=== PATIENT | female | born 1975 | race African-American/Black ===

== ENCOUNTER 2019-02-08 16:55 | Observation (INO) | payer MEDICAID ==
--- NOTE | 2019-02-08 17:44 | CR ---
[id number] RAD/RAD Chest PA or AP 1V EXAM: SINGLE VIEW CHEST. INDICATION: CHEST PAIN COMPARISON: NO PREVIOUS SIMILAR EXAM IS AVAILABLE FINDINGS: The lungs are clear The aorta is slightly tortuous The cardiac silhouette is upper normal IMPRESSION: NO PNEUMONIA OR EDEMA Timbo Chamberlain MD 02/08/19 0007 Thank you for allowing us to participate in the care of your patient.
--- NOTE | 2019-02-08 17:47 | EDM.PDOC ---
ED HPI GENERAL MEDICAL PROBLEM - General Chief Complaint: Chest Pain Stated Complaint: ER Time Seen by Provider: 02/08/19 17:10 Source of Information: Reports: Patient, RN History Limitations: Reports: No Limitations - History of Present Illness INITIAL COMMENTS - FREE TEXT/NARRATIVE: Patient presented by ambulance after developing chest pain at work. Her heart was beating fast and she felt dizzy. The chest pain was mid chest and intermittent. Pain was increased with deep breathing. She felt nauseous. Her heart rate at work was 170s. Her Bp was 158/111. She was given 1 spray Nitro and baby aspirin 324 mg. She has had a headache which started this morning when she woke up. She feels generally a bit unwell. She developed a pain in her left flank/back area while sitting in the bed. Onset: Today Onset Date: 02/08/19 Location: Reports: Chest, Back Quality: Reports: Ache, Pressure Severity: Moderate Improves with: Reports: Rest Worsens with: Reports: Breathing Context: Reports: Activity Associated Symptoms: Reports: Chest Pain, Headaches, Nausea/Vomiting, Other ( light headed) Treatments [employer]: Reports: Aspirin, EKG, Nitroglycerin, Other (see below) (Nitro) Lower Chest Pain Score (Numeric/FACES): 6 Frontal Headache Pain Score (Numeric/FACES): 9 Middle Chest Pain Score (Numeric/FACES): 4 - Related Data Allergies Allergy/AdvReac Type Severity Reaction Status Date / Time No Known Allergies Allergy Verified 02/08/19 17:25 Home Meds: Home Meds . [No Known Home Meds] 02/08/19 [History] Past Medical History Gastrointestinal History: Reports: Cholelithiasis Social & Family History - Tobacco Use Smoking Status *Q: Never Smoker ED ROS GENERAL - Review of Systems Review Of Systems: ROS reveals no pertinent complaints other than HPI. ED EXAM, GENERAL - Physical Exam Exam: See Below Free Text/Narrative:: Female who is on exam cart and appears uncomfortable but not acutely distressed. VSS. She reports the chest pain has resolved currently. She then developed a pain in her left flank area but was sitting up very awkwardly on the cart. Exam Limited By: No Limitations General Appearance: Alert, WD/WN, Anxious, Mild Distress Eye Exam: Bilateral Eye: Normal Inspection Ears: Normal External Exam, Normal Canal, Normal TMs Nose: Normal Inspection Throat/Mouth: Normal Inspection, Normal Oropharynx, Normal Voice, No Airway Compromise Head: Atraumatic, Normocephalic Neck: Supple, Non-Tender. No: Lymphadenopathy (L), Thyromegaly Respiratory/Chest: No Respiratory Distress, Lungs Clear, Decreased Breath Sounds Cardiovascular: Regular Rate, Rhythm, No Edema, No Murmur GI/Abdominal: Normal Bowel Sounds, Soft, Non-Tender, No Organomegaly, No Distention (Female) Exam: Deferred Rectal (Female) Exam: Deferred Back Exam: Normal Inspection, Muscle Spasm. No: CVA Tenderness (L), CVA Tenderness (R) Extremities: Normal Inspection, Normal Range of Motion, Non-Tender, No Pedal Edema, Normal Capillary Refill Neurological: Alert, Oriented, CN II-XII Intact, Normal Cognition, No Motor/ Sensory Deficits Psychiatric: Anxious Skin Exam: Warm, Dry, No Rash Lymphatic: No Adenopathy Course - Vital Signs Last Recorded V/S: Last Vital Signs Temp 97.7 F 02/09/19 05:47 Pulse 78 02/09/19 05:47 Resp 18 02/09/19 05:47 BP 132/52 L 02/09/19 05:47 Pulse Ox 97 02/09/19 05:47 - Orders/Labs/Meds Orders: Active Orders 24 hr Category Date Time Status EKG 12 Lead [EKG Documentation Completion] [RC] STAT Care 02/08/19 17:15 Active EKG 12 Lead [EKG Documentation Completion] [RC] STAT Care 02/08/19 19:13 Active Labs: Laboratory Tests 02/08/19 02/08/19 02/08/19 Range/Units 17:25 17:25 17:25 WBC 7.0 (4.0-10.0) x10^3/uL RBC 4.02 (4.00-5.50) x10^6/uL Hgb 10.3 L (12.0-16.0) g/dL Hct 31.3 L (33.0-47.0) % MCV 77.9 L (78.0-93.0) fL MCH 25.6 L (26.0-32.0) pg MCHC 32.9 (32.0-36.0) g/dL RDW Coeff of Danis 14.9 (10.0-15.0) % Plt Count 289 (130-400) x10^3/uL Neut % (Auto) 66.7 (50.0-80.0) % Lymph % (Auto) 25.7 (25.0-50.0) % [place] % (Auto) 6.7 (2.0-11.0) % Eos % (Auto) 0.6 (0.0-4.0) % Baso % (Auto) 0.3 (0.2-1.2) % Sodium 142 (69-191) mmol/L Potassium 3.5 (1.5-9.9) mmol/L Chloride 107 (54-184) mmol/L Carbon Dioxide 21 (21-32) mmol/L Anion Gap 17.5 (10-20) mmol/L BUN 8 (7-18) mg/dL Creatinine 0.9 (0.55-1.02) mg/dL Est Cr Clr Drug Dosing 62.07 mL/min Estimated GFR (MDRD) > 60 Glucose 89 (74-106) mg/dL Calcium 8.8 (8.5-10.1) mg/dL Corrected Calcium 9.52 (8.5-10.1) mg/dL Magnesium (1.8-2.4) mg/dL Total Bilirubin 0.3 (0.2-1.0) mg/dL AST 18 (15-37) U/L ALT 22 (14-59) U/L Alkaline Phosphatase 91 (46-116) U/L POC Troponin I (0.00-0.08) ng/mL Total Protein 8.3 H (6.4-8.2) g/dL Albumin 3.1 L (3.4-5.0) g/dL Globulin 5.2 Albumin/Globulin Ratio 0.60 TSH, Ultra Sensitive 0.693 (0.358-3.74) uIU/mL Urine Color (YELLOW) Urine Appearance (CLEAR) Urine pH (5.0-8.0) Ur Specific [place] Urine Protein (NEGATIVE) mg/dL Urine Glucose (UA) (NEGATIVE) mg/dL Urine Ketones (NEGATIVE) mg/dL Urine Occult Blood (NEGATIVE) Urine Nitrite (NEGATIVE) Urine Bilirubin (NEGATIVE) Urine Urobilinogen (0.2) EU/dL Ur Leukocyte Esterase (NEGATIVE) Urine RBC (NOT SEEN) /HPF Urine WBC (NOT SEEN) /HPF Ur Squamous Epith Cells (NEGATIVE) /HPF Urine Bacteria (NEGATIVE) /HPF Hyaline Casts (NEGATIVE) /HPF Urine Mucus (NEGATIVE) /LPF Urine Yeast (Budding) Urine HCG, Qual (NEGATIVE) 02/08/19 02/08/19 02/08/19 Range/Units 17:25 17:30 17:52 WBC (4.0-10.0) x10^3/uL RBC (4.00-5.50) x10^6/uL Hgb (12.0-16.0) g/dL Hct (33.0-47.0) % MCV (78.0-93.0) fL MCH (26.0-32.0) pg MCHC (32.0-36.0) g/dL RDW Coeff of Danis (10.0-15.0) % Plt Count (130-400) x10^3/uL Neut % (Auto) (50.0-80.0) % Lymph % (Auto) (25.0-50.0) % [place] % (Auto) (2.0-11.0) % Eos % (Auto) (0.0-4.0) % Baso % (Auto) (0.2-1.2) % Sodium (69-191) mmol/L Potassium (1.5-9.9) mmol/L Chloride (54-184) mmol/L Carbon Dioxide (21-32) mmol/L Anion Gap (10-20) mmol/L BUN (7-18) mg/dL Creatinine (0.55-1.02) mg/dL Est Cr Clr Drug Dosing mL/min Estimated GFR (MDRD) Glucose (74-106) mg/dL Calcium (8.5-10.1) mg/dL Corrected Calcium (8.5-10.1) mg/dL Magnesium 2.0 (1.8-2.4) mg/dL Total Bilirubin (0.2-1.0) mg/dL AST (15-37) U/L ALT (14-59) U/L Alkaline Phosphatase (46-116) U/L POC Troponin I 0.01 (0.00-0.08) ng/mL Total Protein (6.4-8.2) g/dL Albumin (3.4-5.0) g/dL Globulin Albumin/Globulin Ratio TSH, Ultra Sensitive (0.358-3.74) uIU/mL Urine Color Yellow (YELLOW) Urine Appearance Clear (CLEAR) Urine pH 7.0 (5.0-8.0) Ur Specific [place] 1.010 Urine Protein Negative (NEGATIVE) mg/dL Urine Glucose (UA) Negative (NEGATIVE) mg/dL Urine Ketones Trace H (NEGATIVE) mg/dL Urine Occult Blood Negative (NEGATIVE) Urine Nitrite Negative (NEGATIVE) Urine Bilirubin Negative (NEGATIVE) Urine Urobilinogen 0.2 (0.2) EU/dL Ur Leukocyte Esterase Trace H (NEGATIVE) Urine RBC 0-5 (NOT SEEN) /HPF Urine WBC 0-5 (NOT SEEN) /HPF Ur Squamous Epith Cells Few H (NEGATIVE) /HPF Urine Bacteria Not seen (NEGATIVE) /HPF Hyaline Casts Few H (NEGATIVE) /HPF Urine Mucus Few H (NEGATIVE) /LPF Urine Yeast (Budding) Not seen Urine HCG, Qual (NEGATIVE) 02/08/19 Range/Units 17:52 WBC (4.0-10.0) x10^3/uL RBC (4.00-5.50) x10^6/uL Hgb (12.0-16.0) g/dL Hct (33.0-47.0) % MCV (78.0-93.0) fL MCH (26.0-32.0) pg MCHC (32.0-36.0) g/dL RDW Coeff of Danis (10.0-15.0) % Plt Count (130-400) x10^3/uL Neut % (Auto) (50.0-80.0) % Lymph % (Auto) (25.0-50.0) % [place] % (Auto) (2.0-11.0) % Eos % (Auto) (0.0-4.0) % Baso % (Auto) (0.2-1.2) % Sodium (69-191) mmol/L Potassium (1.5-9.9) mmol/L Chloride (54-184) mmol/L Carbon Dioxide (21-32) mmol/L Anion Gap (10-20) mmol/L BUN (7-18) mg/dL Creatinine (0.55-1.02) mg/dL Est Cr Clr Drug Dosing mL/min Estimated GFR (MDRD) Glucose (74-106) mg/dL Calcium (8.5-10.1) mg/dL Corrected Calcium (8.5-10.1) mg/dL Magnesium (1.8-2.4) mg/dL Total Bilirubin (0.2-1.0) mg/dL AST (15-37) U/L ALT (14-59) U/L Alkaline Phosphatase (46-116) U/L POC Troponin I (0.00-0.08) ng/mL Total Protein (6.4-8.2) g/dL Albumin (3.4-5.0) g/dL Globulin Albumin/Globulin Ratio TSH, Ultra Sensitive (0.358-3.74) uIU/mL Urine Color (YELLOW) Urine Appearance (CLEAR) Urine pH (5.0-8.0) Ur Specific [place] Urine Protein (NEGATIVE) mg/dL Urine Glucose (UA) (NEGATIVE) mg/dL Urine Ketones (NEGATIVE) mg/dL Urine Occult Blood (NEGATIVE) Urine Nitrite (NEGATIVE) Urine Bilirubin (NEGATIVE) Urine Urobilinogen (0.2) EU/dL Ur Leukocyte Esterase (NEGATIVE) Urine RBC (NOT SEEN) /HPF Urine WBC (NOT SEEN) /HPF Ur Squamous Epith Cells (NEGATIVE) /HPF Urine Bacteria (NEGATIVE) /HPF Hyaline Casts (NEGATIVE) /HPF Urine Mucus (NEGATIVE) /LPF Urine Yeast (Budding) Urine HCG, Qual Negative (NEGATIVE) Meds: Medications Discontinued Medications Generic Name Dose Route Start Last Admin Trade Name Freq PRN Reason Stop Dose Admin Ceftriaxone Sodium 1 gm 02/08/19 18:48 02/08/19 18:57 Rocephin IVPUSH 02/08/19 18:49 1 gm STAT ONE Administration Dexamethasone 10 mg 02/08/19 18:50 02/08/19 19:17 Dexamethasone IVPUSH 02/08/19 18:51 Not Given ONETIME ONE Dexamethasone 10 mg 02/08/19 19:03 02/08/19 19:16 Dexamethasone IVPUSH 02/08/19 19:04 10 mg ONETIME ONE Administration Diphenhydramine HCl 50 mg 02/08/19 19:27 02/08/19 19:33 Benadryl IVPUSH 02/08/19 19:28 50 mg ONETIME ONE Administration Diphenhydramine HCl 25 mg 02/08/19 23:39 02/09/19 00:07 Benadryl IVPUSH 02/08/19 23:40 25 mg ONETIME ONE Administration Famotidine 20 mg 02/08/19 19:27 02/08/19 19:33 Pepcid IVPUSH 02/08/19 19:28 20 mg ONETIME ONE Administration Ketorolac Tromethamine 30 mg 02/08/19 18:04 02/08/19 19:17 Toradol IM 02/08/19 18:05 Not Given ONETIME ONE Ketorolac Tromethamine 30 mg 02/08/19 18:46 02/08/19 18:57 Toradol IVPUSH 02/08/19 18:47 30 mg ONETIME ONE Administration Ketorolac Tromethamine 15 mg 02/08/19 23:40 02/09/19 00:00 Toradol IVPUSH 15 mg Q6H PRN Administration Headache Departure - Departure Time of Disposition: 20:06 Disposition: Refer to Observation Condition: Fair Clinical Impression: Chest pain in adult, Tachyarrhythmia, Headache, Sinusitis, Otitis - Problem List & Annotations (1) Chest pain in adult SNOMED Code(s): 39186183 Code(s): R07.9 - CHEST PAIN, UNSPECIFIED Status: Acute Onset Date: ~02/08 - Problem List Review Problem List Initiated/Reviewed/Updated: Yes - My Orders Last 24 Hours: My Active Orders 02/08/19 17:15 EKG 12 Lead [EKG Documentation Completion] [RC] STAT 02/08/19 19:13 EKG 12 Lead [EKG Documentation Completion] [RC] STAT - Assessment/Plan Last 24 Hours: My Active Orders 02/08/19 17:15 EKG 12 Lead [EKG Documentation Completion] [RC] STAT 02/08/19 19:13 EKG 12 Lead [EKG Documentation Completion] [RC] STAT
[2019-02-08 18:06] LABS: CHLORIDE,CL 107 mmol/L (54-184); SODIUM,NA 142 mmol/L (69-191)
[2019-02-08 18:08] LABS: ANION GAP 17.5 mmol/L (10-20)
--- NOTE | 2019-02-08 18:30 | CT ---
[id number] CT/CT Head WO IV EXAM: CT Head WO IV CLINICAL DATA: HEADACHE COMPARISON: NO PREVIOUS SIMILAR EXAM IS AVAILABLE FOR COMPARISON. FINDINGS: There is significant bilateral paranasal sinus, middle ear, and mastoid air cell disease There is no mass or mass effect. There is no hemorrhage or hydrocephalus. There are no extra-axial fluid collections. There are no sites of abnormal attenuation. IMPRESSION: NO PLAIN CT EVIDENCE OF ACUTE INTRACRANIAL PROCESS. MODERATE MIDDLE EAR, MASTOID AIR CELL, AND PARANASAL SINUS DISEASE CONSIDER FURTHER STUDIES IF NEEDED. Timbo Chamberlain MD 02/08/19 [id number] Thank you for allowing us to participate in the care of your patient.
[2019-02-08] MEDS: cefTRIAXone 1 GM Vial IVPUSH ONE (18:57)
[2019-02-08] MEDS: Ketorolac 30 MG/ML SDV IVPUSH ONE (18:57)
[2019-02-08] MEDS: Dexamethasone 4 MG/ML SDV IVPUSH ONE (19:16)
[2019-02-08] MEDS: Ketorolac 30 MG/ML SDV IM ONE (19:17)
[2019-02-08] MEDS: Dexamethasone 10 MG/ML SDV IVPUSH ONE (19:17)
[2019-02-08] MEDS: diphenhydrAMINE 50 MG/ML SDV IVPUSH ONE (19:33)
[2019-02-08] MEDS: Famotidine 20 MG/2 ML SDV IVPUSH ONE (19:33)
[2019-02-09] MEDS: Ketorolac 15 MG/ML SDV IVPUSH PRN
[2019-02-09] MEDS: diphenhydrAMINE 50 MG/ML SDV IVPUSH ONE (00:07)
--- NOTE | 2019-02-09 07:36 | PCM.DCSUM1 ---
Discharge Summary - Hospital Course HPI Initial Comments: She presented to ER by ambulance with chest pain and shortness of breath. 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 She had increased pain with breathing. She also had a severe headache. Her CT scan showed that she has significant sinusitis and otitis. She was given Rocephin IV and Benadryl and Dexamethasone. She states that she is feeling better this morning. Brief History: See HPI Diagnosis: Stroke: No Modified [place] Scale: No Symptoms at All Modified [place] Scale Score: 0 - Discharge Data Discharge Date: 02/09/19 Discharge Disposition: Home, Self-Care 01 Condition: Good - Referral to Home Health Primary Care Physician: PCP Not In Area - Patient Instructions Diet: Heart Healthy Diet Activity: As Tolerated Showering/Bathing: August Shower - Discharge Plan *PRESCRIPTION DRUG MONITORING PROGRAM REVIEWED*: No *COPY OF PRESCRIPTION DRUG MONITORING REPORT IN PATIENT LONI: No Home Medications: Home Meds . [No Known Home Meds] 02/08/19 [History] Patient Handouts: Sinusitis, Adult, Otitis Media, Adult Forms: ED Department Discharge Referrals: PCP,Not In Area [Primary Care Provider] - - Discharge Summary/Plan Comment DC Time >30 min.: No Discharge Summary/Plan Comment: Follow up with TITO Mott at [facility]. You should have further evaluation regarding your heart and have recheck of your sinus infection and headache. - General Info Date of Service: 02/09/19 Functional Status: Reports: Pain Controlled - Review of Systems General: Reports: No Symptoms HEENT: Reports: Headaches Pulmonary: Reports: No Symptoms Cardiovascular: Reports: No Symptoms Gastrointestinal: Reports: No Symptoms Genitourinary: Reports: No Symptoms Musculoskeletal: Reports: No Symptoms Skin: Reports: No Symptoms Neurological: Reports: No Symptoms Psychiatric: Reports: No Symptoms - Patient Data Vitals - Most Recent: Last Vital Signs Temp 97.7 F 02/09/19 05:47 Pulse 78 02/09/19 05:47 Resp 18 02/09/19 05:47 BP 132/52 L 02/09/19 05:47 Pulse Ox 97 02/09/19 05:47 Weight - Most Recent: 170 lb I&O - Last 24 hours: Intake & Output 02/08/19 02/09/19 02/09/19 22:59 06:59 14:59 Intake Total 100 Output Total 400 Balance -300 Lab Results - Last 24 hrs: Laboratory Results - last 24 hr 02/08/19 02/08/19 02/08/19 Range/Units 17:25 17:25 17:25 WBC 7.0 (4.0-10.0) x10^3/uL RBC 4.02 (4.00-5.50) x10^6/uL Hgb 10.3 L (12.0-16.0) g/dL Hct 31.3 L (33.0-47.0) % MCV 77.9 L (78.0-93.0) fL MCH 25.6 L (26.0-32.0) pg MCHC 32.9 (32.0-36.0) g/dL RDW Coeff of Danis 14.9 (10.0-15.0) % Plt Count 289 (130-400) x10^3/uL Neut % (Auto) 66.7 (50.0-80.0) % Lymph % (Auto) 25.7 (25.0-50.0) % [place] % (Auto) 6.7 (2.0-11.0) % Eos % (Auto) 0.6 (0.0-4.0) % Baso % (Auto) 0.3 (0.2-1.2) % Sodium 142 (69-191) mmol/L Potassium 3.5 (1.5-9.9) mmol/L Chloride 107 (54-184) mmol/L Carbon Dioxide 21 (21-32) mmol/L Anion Gap 17.5 (10-20) mmol/L BUN 8 (7-18) mg/dL Creatinine 0.9 (0.55-1.02) mg/dL Est Cr Clr Drug Dosing 62.07 mL/min Estimated GFR (MDRD) > 60 Glucose 89 (74-106) mg/dL Calcium 8.8 (8.5-10.1) mg/dL Corrected Calcium 9.52 (8.5-10.1) mg/dL Magnesium (1.8-2.4) mg/dL Total Bilirubin 0.3 (0.2-1.0) mg/dL AST 18 (15-37) U/L ALT 22 (14-59) U/L Alkaline Phosphatase 91 (46-116) U/L POC Troponin I (0.00-0.08) ng/mL Troponin I (<=0.056) ng/mL Total Protein 8.3 H (6.4-8.2) g/dL Albumin 3.1 L (3.4-5.0) g/dL Globulin 5.2 Albumin/Globulin Ratio 0.60 TSH, Ultra Sensitive 0.693 (0.358-3.74) uIU/mL Urine Color (YELLOW) Urine Appearance (CLEAR) Urine pH (5.0-8.0) Ur Specific [place] Urine Protein (NEGATIVE) mg/dL Urine Glucose (UA) (NEGATIVE) mg/dL Urine Ketones (NEGATIVE) mg/dL Urine Occult Blood (NEGATIVE) Urine Nitrite (NEGATIVE) Urine Bilirubin (NEGATIVE) Urine Urobilinogen (0.2) EU/dL Ur Leukocyte Esterase (NEGATIVE) Urine RBC (NOT SEEN) /HPF Urine WBC (NOT SEEN) /HPF Ur Squamous Epith Cells (NEGATIVE) /HPF Urine Bacteria (NEGATIVE) /HPF Hyaline Casts (NEGATIVE) /HPF Urine Mucus (NEGATIVE) /LPF Urine Yeast (Budding) Urine HCG, Qual (NEGATIVE) 02/08/19 02/08/19 02/08/19 Range/Units 17:25 17:30 17:52 WBC (4.0-10.0) x10^3/uL RBC (4.00-5.50) x10^6/uL Hgb (12.0-16.0) g/dL Hct (33.0-47.0) % MCV (78.0-93.0) fL MCH (26.0-32.0) pg MCHC (32.0-36.0) g/dL RDW Coeff of Danis (10.0-15.0) % Plt Count (130-400) x10^3/uL Neut % (Auto) (50.0-80.0) % Lymph % (Auto) (25.0-50.0) % [place] % (Auto) (2.0-11.0) % Eos % (Auto) (0.0-4.0) % Baso % (Auto) (0.2-1.2) % Sodium (69-191) mmol/L Potassium (1.5-9.9) mmol/L Chloride (54-184) mmol/L Carbon Dioxide (21-32) mmol/L Anion Gap (10-20) mmol/L BUN (7-18) mg/dL Creatinine (0.55-1.02) mg/dL Est Cr Clr Drug Dosing mL/min Estimated GFR (MDRD) Glucose (74-106) mg/dL Calcium (8.5-10.1) mg/dL Corrected Calcium (8.5-10.1) mg/dL Magnesium 2.0 (1.8-2.4) mg/dL Total Bilirubin (0.2-1.0) mg/dL AST (15-37) U/L ALT (14-59) U/L Alkaline Phosphatase (46-116) U/L POC Troponin I 0.01 (0.00-0.08) ng/mL Troponin I (<=0.056) ng/mL Total Protein (6.4-8.2) g/dL Albumin (3.4-5.0) g/dL Globulin Albumin/Globulin Ratio TSH, Ultra Sensitive (0.358-3.74) uIU/mL Urine Color Yellow (YELLOW) Urine Appearance Clear (CLEAR) Urine pH 7.0 (5.0-8.0) Ur Specific [place] 1.010 Urine Protein Negative (NEGATIVE) mg/dL Urine Glucose (UA) Negative (NEGATIVE) mg/dL Urine Ketones Trace H (NEGATIVE) mg/dL Urine Occult Blood Negative (NEGATIVE) Urine Nitrite Negative (NEGATIVE) Urine Bilirubin Negative (NEGATIVE) Urine Urobilinogen 0.2 (0.2) EU/dL Ur Leukocyte Esterase Trace H (NEGATIVE) Urine RBC 0-5 (NOT SEEN) /HPF Urine WBC 0-5 (NOT SEEN) /HPF Ur Squamous Epith Cells Few H (NEGATIVE) /HPF Urine Bacteria Not seen (NEGATIVE) /HPF Hyaline Casts Few H (NEGATIVE) /HPF Urine Mucus Few H (NEGATIVE) /LPF Urine Yeast (Budding) Not seen Urine HCG, Qual (NEGATIVE) 02/08/19 02/08/19 02/09/19 Range/Units 17:52 23:33 06:40 WBC (4.0-10.0) x10^3/uL RBC (4.00-5.50) x10^6/uL Hgb (12.0-16.0) g/dL Hct (33.0-47.0) % MCV (78.0-93.0) fL MCH (26.0-32.0) pg MCHC (32.0-36.0) g/dL RDW Coeff of Danis (10.0-15.0) % Plt Count (130-400) x10^3/uL Neut % (Auto) (50.0-80.0) % Lymph % (Auto) (25.0-50.0) % [place] % (Auto) (2.0-11.0) % Eos % (Auto) (0.0-4.0) % Baso % (Auto) (0.2-1.2) % Sodium (69-191) mmol/L Potassium (1.5-9.9) mmol/L Chloride (54-184) mmol/L Carbon Dioxide (21-32) mmol/L Anion Gap (10-20) mmol/L BUN (7-18) mg/dL Creatinine (0.55-1.02) mg/dL Est Cr Clr Drug Dosing mL/min Estimated GFR (MDRD) Glucose (74-106) mg/dL Calcium (8.5-10.1) mg/dL Corrected Calcium (8.5-10.1) mg/dL Magnesium (1.8-2.4) mg/dL Total Bilirubin (0.2-1.0) mg/dL AST (15-37) U/L ALT (14-59) U/L Alkaline Phosphatase (46-116) U/L POC Troponin I (0.00-0.08) ng/mL Troponin I 0.052 0.039 (<=0.056) ng/mL Total Protein (6.4-8.2) g/dL Albumin (3.4-5.0) g/dL Globulin Albumin/Globulin Ratio TSH, Ultra Sensitive (0.358-3.74) uIU/mL Urine Color (YELLOW) Urine Appearance (CLEAR) Urine pH (5.0-8.0) Ur Specific [place] Urine Protein (NEGATIVE) mg/dL Urine Glucose (UA) (NEGATIVE) mg/dL Urine Ketones (NEGATIVE) mg/dL Urine Occult Blood (NEGATIVE) Urine Nitrite (NEGATIVE) Urine Bilirubin (NEGATIVE) Urine Urobilinogen (0.2) EU/dL Ur Leukocyte Esterase (NEGATIVE) Urine RBC (NOT SEEN) /HPF Urine WBC (NOT SEEN) /HPF Ur Squamous Epith Cells (NEGATIVE) /HPF Urine Bacteria (NEGATIVE) /HPF Hyaline Casts (NEGATIVE) /HPF Urine Mucus (NEGATIVE) /LPF Urine Yeast (Budding) Urine HCG, Qual Negative (NEGATIVE) Med Orders - Current: Current Medications Ketorolac Tromethamine (Toradol) 15 mg IVPUSH Q6H PRN PRN Reason: Headache Last Admin: 02/09/19 00:00 Dose: 15 mg Discontinued Medications Ceftriaxone Sodium (Rocephin) 1 gm IVPUSH STAT ONE Stop: 02/08/19 18:49 Last Admin: 02/08/19 18:57 Dose: 1 gm Dexamethasone (Dexamethasone) 10 mg IVPUSH ONETIME ONE Stop: 02/08/19 18:51 Last Admin: 02/08/19 19:17 Dose: Not Given Dexamethasone (Dexamethasone) 10 mg IVPUSH ONETIME ONE Stop: 02/08/19 19:04 Last Admin: 02/08/19 19:16 Dose: 10 mg Diphenhydramine HCl (Benadryl) 50 mg IVPUSH ONETIME ONE Stop: 02/08/19 19:28 Last Admin: 02/08/19 19:33 Dose: 50 mg Diphenhydramine HCl (Benadryl) 25 mg IVPUSH ONETIME ONE Stop: 02/08/19 23:40 Last Admin: 02/09/19 00:07 Dose: 25 mg Famotidine (Pepcid) 20 mg IVPUSH ONETIME ONE Stop: 02/08/19 19:28 Last Admin: 02/08/19 19:33 Dose: 20 mg Ketorolac Tromethamine (Toradol) 30 mg IM ONETIME ONE Stop: 02/08/19 18:05 Last Admin: 02/08/19 19:17 Dose: Not Given Ketorolac Tromethamine (Toradol) 30 mg IVPUSH ONETIME ONE Stop: 02/08/19 18:47 Last Admin: 02/08/19 18:57 Dose: 30 mg
== END 2019-02-09 10:52 | disposition home or self-care (01) ==
LOC: VM.ED 16:55 → VM.MS 19:49
PROVIDERS: ADMIT Nurse Practitioner Family; ATTEND Nurse Practitioner Family
DX: R07.89 Other chest pain (principal); R06.02 Shortness of breath; H66.93 Otitis media, unspecified, bilateral; J32.8 Other chronic sinusitis
CPT/HCPCS: 36415; 70450; 71045; 80053; 81001; 81025; 83735; 84443; 84484; 85025; 93005; 96374; 96375; 96376; 99285-25; G0378; J0696; J1100; J1200; J1885; J3490